=== PATIENT | male | born 1965 | race Caucasian/White ===

== ENCOUNTER → 2016-09-10 | Outpatient (CLI) | payer OTHER ==
[~2016-09-10] MED LIST: BACT800T5 PO; CEPH500T PO; CINN500C13 PO; CINN500T PO; FISH100020 PO; GLIP10TA6 PO; IBUP200C PO; LEVEMIR SQ; LEVO75TA3 PO; LISI-589 PO; METF1000 PO; MOTR200T4 PO; OCUVTAB PO; OMEG5CAP; PROC2.5C RECTAL
[2016-09-10 09:24] LABS: AUTOMATED NEUTROPHIL # 3.3 TH/MM3 (1.8-7.7); BASOPHIL % 0.4 % (0.0-2.0); EOSINOPHIL # 0.1 TH/MM3 (0-0.4); EOSINOPHIL % 2.2 % (0.0-4.0); HEMATOCRIT 43.9 % (39.0-51.0); HEMO FLAGS DIFF FINAL; LYMPH % 32.5 % (9.0-44.0); LYMPHOCYTE # 1.9 TH/MM3 (1.0-4.8); MEAN CELL VOLUME 88.6 FL (80.0-100.0); MEAN CORPUSCULAR HEMOGLOBIN 29.7 PG (27.0-34.0); MEAN CORPUSCULAR HGB CONC 33.5 % (32.0-36.0); MONO % 9.4 % (0.0-8.0); NEUT % 55.5 % (16.0-70.0); PLATELET COUNT 210 TH/MM3 (150-450); RED BLOOD COUNT 4.96 MIL/MM3 (4.50-5.90); RED CELL DISTRIBUTION WIDTH 13.5 % (11.6-17.2); WHITE BLOOD COUNT 5.9 TH/MM3 (4.0-11.0)
[2016-09-10 10:06] LABS: ALKALINE PHOSPHATASE 62 U/L (45-117); ALT (GPT) 49 U/L (12-78); ANION GAP 11 MEQ/L (5-15); AST (GOT) 26 U/L (15-37); BICARBONATE 24.1 MEQ/L (21.0-32.0); BLOOD UREA NITROGEN 10 MG/DL (7-18); CHLORIDE 104 MEQ/L (98-107); GLOMERULAR FILTRATION RATE 112 ML/MIN (>89); GLUCOSE,FASTING 220 MG/DL (74-99); HDL CHOLESTEROL 62.3 MG/DL (40.0-60.0); LDL CHOLESTEROL 107 MG/DL (0-99); POTASSIUM 3.9 MEQ/L (3.5-5.1); SODIUM (NA) 139 MEQ/L (136-145); TOTAL BILIRUBIN ADULT 0.4 MG/DL (0.2-1.0)
[2016-09-10 14:03] LABS: HEMOGLOBIN A1a 1.6 %; HEMOGLOBIN A1b 1.3 %; HEMOGLOBIN Ao 78.1 %; HEMOGLOBIN F 2.2 %; HEMOGLOBIN LA1C 2.9 %; HEMOGLOBIN P3 4.3 %
== END ==
LOC: CLAB 08:53
PROVIDERS: ATTEND Family Medicine
DX: E11.9 Type 2 diabetes mellitus without complications (principal); M33.20 Polymyositis, organ involvement unspecified; E03.9 Hypothyroidism, unspecified; I10 Essential (primary) hypertension; E78.5 Hyperlipidemia, unspecified; E66.9 Obesity, unspecified
CPT/HCPCS: 36415; 80053; 80061; 83036; 84443; 85025

== ENCOUNTER → 2016-09-17 | Outpatient (CLI) | payer OTHER | LOC: CLAB 09:46 | PROVIDERS: ATTEND Family Medicine | DX: E11.9 Type 2 diabetes mellitus without complications (principal); E03.9 Hypothyroidism, unspecified | CPT/HCPCS: 36415; 84443 ==

== ENCOUNTER 2016-10-15 20:28 | Emergency (ER) | payer OTHER ==
[~2016-10-15] VITALS: Ht 180.3 cm; Wt 123.8 kg
[~2016-10-15 20:28] MED LIST changes: -BACT800T5 PO; -CEPH500T PO; -CINN500C13 PO; -FISH100020 PO; -IBUP200C PO
[2016-10-15 20:33] VITALS: BP 149/81; PULSE 117; RESP 14; TEMP 99; O2SAT 95
[2016-10-15] MEDS ORDERED: CEPH500T PO (20:58)
[2016-10-15] MEDS ORDERED: BACT800T5 PO (20:58)
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
[2016-10-15] MEDS ORDERED: CEPHALEXIN MONOHYDRATE 500 MG CAP PO ONE (21:00)
[2016-10-15] MEDS ORDERED: SULFAMETHOXAZOLE-TRIMETHOPRIM DS 800-160 MG TAB PO ONE (21:00)
[2016-10-25] MEDS ORDERED: CINN500C13 PO (12:32)
[2016-10-25] MEDS ORDERED: IBUP200C PO (12:32)
[2016-10-25] MEDS ORDERED: FISH100020 PO (12:32)
[2016-10-25] MEDS ORDERED: LEVEMIR SQ (12:49)
[2016-10-29] MEDS ORDERED: BACT800T5 PO (12:54)
== END 2016-10-15 21:12 | disposition home or self-care (01) ==
LOC: PHEFT 20:28
DX: L03.115 Cellulitis of right lower limb (principal); R50.9 Fever, unspecified; E11.9 Type 2 diabetes mellitus without complications; I10 Essential (primary) hypertension; E03.9 Hypothyroidism, unspecified; Z79.899 Other long term (current) drug therapy
CPT/HCPCS: 99284

== ENCOUNTER 2017-02-05 17:27 | Emergency (ER) | payer OTHER ==
[~2017-02-05 17:27] MED LIST changes: +CINN500C13 PO; -CINN500T PO; +FISH100020 PO; +IBUP200C PO; +LEVA750T9 PO; -MOTR200T4 PO; -OMEG5CAP; -PROC2.5C RECTAL
[2017-02-05 17:30] VITALS: BP 135/59; PULSE 104; RESP 20; TEMP 98.3; O2SAT 96
[2017-02-05] MEDS ORDERED: CLOT1CRE8 TOPICAL (17:57)
--- NOTE | 2017-02-05 18:10 | PD ---
HPI Chief Complaint: Complaint Time Seen by Provider: 17:30 Travel History International Travel<30 days: No Contact w/Intl Traveler<30days: No Traveled to known affect area: No History of Present Illness HPI 51-year-old diabetic male presents to the emergency room for evaluation of painful blisters to his penis for the past 1.5 weeks. Symptoms started off as a single lesion and has since spread. Lesions are painful and burning. Patient states about 2 weeks ago he finished a course of Levaquin. Previously he was on Bactrim 2 times and clindamycin. The antibiotics were for cellulitis on his leg which has significantly improved. Denies pain now drainage, testicular pain, or pain in the penis. He denies any history of STDs. PFSH Past Medical History Hx Anticoagulant Therapy: No Cardiovascular Problems: No Chemotherapy: No Cerebrovascular Accident: No Diabetes: Yes Patient Takes Glucophage: Yes Diminished Hearing: Yes ([place]) Hypertension: Yes Musculoskeletal: Yes (INTERMITTENT BACK PAIN) Respiratory: No Integumentary: Yes (HEMERROIDS) Immunizations Current: Yes Thyroid Disease: Yes (HYPO) Tetanus Vaccination: > 5 Years Influenza Vaccination: Yes Past Surgical History Other Surgery: Yes (HEMERROIDECTOMY. FATTY TUMOR REMOVED FROM L THIGH) Social History Alcohol Use: No Tobacco Use: No Substance Use: No Allergies-Medications (Allergen,Severity, Reaction): Uncoded Allergies: TEGADERM (Adverse Reaction, Severe, Rash, 02/05/17) Reported Meds & Prescriptions Reported Meds & Active Scripts Active Clotrimazole AF Topical (Clotrimazole) 1% Cream 1 Applic TOPICAL BID Levemir Inj (Insulin Detemir) 1,000 unit/ 10 ML Vial 80 Units SQ HS 30 Days Do not mix with any other Insulin. Zestril (Lisinopril) 5 Mg Tab 5 Mg PO DAILY Metformin (Metformin HCl) 1,000 Mg Tab 1,000 Mg PO BIDPC With meals Glipizide 10 Mg Tab 10 Mg PO BIDAC Take 30 minutes before a meal Levothyroxine (Levothyroxine Sodium) 75 Mcg Tab 75 Mcg PO DAILY Reported Fish Oil 1000 mg ([place]-3 Fatty Acids) 1 Cap Cap 1 Cap PO BID Eql Cinnamon (Cinnamon) 500 Mg Cap 2,000 Mg PO BID PRN Ocuvite (Multiple Vitamins W/ Minerals) 1 Tab 1 Tab PO DAILY Review of Systems Except as stated in HPI: all other systems reviewed are Neg Physical Exam Narrative GENERAL: Well-nourished, well-developed male in no acute distress. Afebrile. Ambulatory. SKIN: Focused skin assessment warm/dry. HEAD: Normocephalic. EYES: No scleral icterus. No injection or drainage. NECK: Supple, trachea midline. No JVD or lymphadenopathy. CARDIOVASCULAR: Regular rate and rhythm without murmurs, gallops, or rubs. RESPIRATORY: Breath sounds equal bilaterally. No accessory muscle use. GENITOURINARY: Examined in the presence of a nurse. Circumcised. Testes descended bilaterally without evidence of rotation. No urethral discharge. There are several circular ulcerations around the base of the head of the penis with cottage cheeselike discharge. No impetiginization. Data Data Last Documented VS Vital Signs Date Time Temp Pulse Resp B/P (MAP) Pulse Ox O2 Delivery O2 Flow Rate FiO2 02/05/17 17:30 98.3 104 20 135/59 (84) 96 MDM Medical Decision Making Medical Screen Exam Complete: Yes Emergency Medical Condition: Yes Medical Record Reviewed: Yes Differential Diagnosis Herpes, balanitis, cellulitis, diabetes Narrative Course 51-year-old male presents to the emergency room for evaluation of painful lesions to his penis for the past 1.5 weeks. Patient is diabetic and recently finished for courses of antibiotics over the past several months for cellulitis on his leg. Patient was examined in the presence of a nurse. Circumcised. Testes descended bilaterally without evidence of rotation. No urethral discharge. There are several circular ulcerations around the base of the head of the penis with cottage-cheeselike discharge. No impetiginization. This is balanitis. Patient discharged with clotrimazole and told to follow up with a primary care physician or return for worsening symptoms. He understands and agrees to plan. Diagnosis Primary Impression: Candidal balanitis Referrals: Primary Care Physician Additional Instructions: Rest and drink plenty of fluids. Wash your penis thoroughly twice daily with gentle soap and water. Apply clotrimazole as directed, until gone. Follow up with a primary care physician. Return to emergency room for worsening symptoms, as discussed. Med/Other Pt SpecificInfo: Prescription(s) given Scripts Clotrimazole Topical (Clotrimazole AF Topical) 1% Cream 1 APPLIC TOPICAL BID for Infection, #15 GM 0 Refills Prov: Irma Thomson MD 02/05/17 Disposition: 01 DISCHARGE HOME Condition: Stable Milagros Spears Feb 05, 2017 18:10
[2017-02-12] MEDS ORDERED: CINN500C13 PO (08:31)
[2017-02-12] MEDS ORDERED: GLIP10TA6 PO (08:35)
[2017-02-12] MEDS ORDERED: LEVEMIR SQ (08:35)
[2017-02-12] MEDS ORDERED: METF1000 PO (08:35)
[2017-02-12] MEDS ORDERED: LEVO75TA3 PO (08:35)
[2017-02-12] MEDS ORDERED: IBUP800T23 PO (08:35)
[2017-02-12] MEDS ORDERED: LISI-589 PO ×2 (08:36→08:37)
== END 2017-02-05 18:18 | disposition home or self-care (01) ==
LOC: PHED 17:27
DX: B37.42 Candidal balanitis (principal); E11.9 Type 2 diabetes mellitus without complications; I10 Essential (primary) hypertension; E03.9 Hypothyroidism, unspecified; Z79.4 Long term (current) use of insulin
CPT/HCPCS: 99283